=== PATIENT | male | born 1985 | race Caucasian/White ===

== ENCOUNTER 2016-10-21 10:09 | Emergency (ER) | payer MEDICAID, OTHER ==
[~2016-10-21] VITALS: Ht 170.2 cm; Wt 77.1 kg
[2016-10-21] MEDS ORDERED: IBUP80TA PO (10:25)
[2016-10-21] MEDS ORDERED: PROM50TA2 PO (10:25)
[2016-10-21] MEDS ORDERED: CLON-412 PO (10:25)
[2016-10-21] MEDS ORDERED: METH-107 PO (10:25)
[2016-10-21] MEDS ORDERED: ONDANSETRON 4MG/2ML VIAL (J2405) IV ONE (11:00)
[2016-10-21] MEDS ORDERED: NS 1,000 ML IV ONE (11:00)
[2016-10-21] MEDS ORDERED: cloNIDine 0.1 MG TAB PO ONE ×2 (11:15→13:30)
[2016-10-21 12:34] LABS: MEAN CORPUSCULAR VOLUME 85.7 fl (80.0-96.0); RED CELL DISTRIBUTION WIDTH 12.1 % (11.5-14.5)
[2016-10-21 12:47] LABS: METHADONE URINE NEGATIVE (NEGATIVE)
[2016-10-21 12:49] LABS: ALBUMIN 3.8 GM/DL (3.2-5.2); ALBUMIN/GLOBULIN RATIO 1.27 (1.00-1.93); ALKALINE PHOSPHATASE 50 U/L (45-117); ALT/SGPT 23 U/L (12-78); ANION GAP 9 MEQ/L (8-16); AST/SGOT 17 U/L (15-37); BILIRUBIN,DIRECT < 0.1 MG/DL (0.0-0.2); BILIRUBIN,TOTAL 0.6 MG/DL (0.2-1.0); BLOOD UREA NITROGEN 14 MG/DL (7-18); CALCIUM LEVEL 9.4 MG/DL (8.5-10.1); CARBON DIOXIDE LEVEL 24 MEQ/L (21-32); CHLORIDE LEVEL 110 MEQ/L (98-107); CREATININE FOR GFR 1.11 MG/DL (0.70-1.30); GLOMERULAR FILTRATION RATE > 60.0 (>60); GLUCOSE, FASTING 96 MG/DL (70-105); SODIUM LEVEL 143 MEQ/L (136-145); TOTAL PROTEIN 6.8 GM/DL (6.4-8.2)
[2016-10-21 14:05] VITALS: BP 150/87
--- NOTE | 2016-10-21 18:01 | ECGEPIP ---
Stationary ECG Study 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
== END 2016-10-21 14:08 | disposition home or self-care (01) ==
LOC: M ED 11:19
DX: F11.93 Opioid use, unspecified with withdrawal (principal); F12.10 Cannabis abuse, uncomplicated

== ENCOUNTER → 2016-10-23 | Outpatient (CLI) | payer OTHER ==
[~2016-10-23] MED LIST: CLON-412 PO; IBUP80TA PO; METH-107 PO; PROM50TA2 PO
== END ==
LOC: M OUTALCOH 08:00
PROVIDERS: ATTEND Psychiatry & Neurology Psychiatry
DX: Z13.9 Encounter for screening, unspecified (principal)

== ENCOUNTER 2019-11-10 12:14 | Day surgery (SDC) | payer OTHER ==
[~2019-11-10] VITALS: Ht 172.7 cm; Wt 79.0 kg
[~2019-11-10 12:14] MED LIST changes: +LIDOCAINE 1% MDV 20ML VIAL SQ PRN; +LR 1,000 ML IV ONE; -METH-107 PO; +METH1TAB40 PO; -PROM50TA2 PO; +PROM50TA4 PO; +[UNRECOGNIZED DRUG - CODE] PO; +ceFAZolin SOD 2 GM in IV 1 EA IV ONE
[2019-11-10] MEDS ORDERED: ROPIvacaine 0.5% 30ML INJECTION (J2795 PER 1MG) ONE (12:15)
[2019-11-10] MEDS ORDERED: dexameTHASONE 10MG/1ML VIAL PRES.FREE (J1100 PER 1MG) ONE (12:15)
[2019-11-10] MEDS ORDERED: EPINEPHrine INJ 1 MG/ML 1ML AMP ONE (12:15)
[2019-11-10] MEDS ORDERED: fentaNYL 250 MCG/5 ML INJECTION (J3010) As Ordered ONE (12:34)
[2019-11-10] MEDS ORDERED: ROCURONIUM BROMIDE 50 MG/5 ML VIAL As Ordered ONE (12:34)
[2019-11-10] MEDS ORDERED: MIDAZOLAM INJ 2MG/2ML VIAL (J2250 PER 1MG) As Ordered ONE ×2 (12:34→13:30)
[2019-11-10] MEDS ORDERED: ONDANSETRON 4MG/2ML VIAL (J2405 PER 1MG) As Ordered ONE (12:34)
[2019-11-10] MEDS ORDERED: dexameTHASONE 4 MG/ML 1ML VIAL (J1100 PER 1MG) As Ordered ONE (12:34)
[2019-11-10] MEDS ORDERED: propofoL 200 MG/20 ML VIAL As Ordered ONE (12:35)
[2019-11-10] MEDS ORDERED: LIDOCAINE 2% 100MG/5ML SDV (FOR ANES.) As Ordered ONE (12:35)
[2019-11-10] MEDS ORDERED: SUGAMMADEX SODIUM 500 MG/5 ML VIAL (BRIDION) As Ordered ONE (12:35)
[2019-11-10] MEDS ORDERED: BUPIVACAINE/EPIN 0.25% 30 ML VIAL As Ordered ONE (13:11)
[2019-11-10] MEDS ORDERED: fentaNYL 100 MCG/2 ML INJECTION (J3010) As Ordered ONE (13:30)
[2019-11-10] MEDS ORDERED: fentaNYL 100 MCG/2 ML INJECTION (J3010) IV ONE (14:00)
[2019-11-10] MEDS ORDERED: MIDAZOLAM INJ 2MG/2ML VIAL (J2250 PER 1MG) IV ONE (14:00)
[2019-11-10] MEDS ORDERED: ePHEDrine SULFATE 25 MG/5 ML(5MG/ML) SYRINGE As Ordered ONE (15:07)
[2019-11-10] MEDS ORDERED: LR 1,000 ML IV SCH ×2 (15:45→16:00)
[2019-11-10] MEDS ORDERED: fentaNYL 100 MCG/2 ML INJECTION (J3010) IV PRN (15:45)
[2019-11-10] MEDS ORDERED: oxyCODONE 5MG TAB PO PRN (15:45)
[2019-11-10] MEDS ORDERED: ONDANSETRON 4MG/2ML VIAL (J2405 PER 1MG) IV PRN (15:45)
--- NOTE | 2019-11-10 16:29 | RO ---
DATE OF PROCEDURE: 11/10/2019 PREOPERATIVE DIAGNOSIS: Left distal biceps tendon tear. POSTOPERATIVE DIAGNOSIS: Left distal biceps tendon tear. PLANNED PROCEDURE: Repair left distal biceps tendon. PROCEDURE PERFORMED: Repair left distal biceps tendon. SURGEON: Nik Lira MD BINDING END STITCHER: Reanna Ratliff AUTOMATIC PILOT MECHANIC: Dr. Infante OPERATIVE PREAMBLE: This pleasant 34-year-old man lifting an extremely heavy 200-pount object while gardening a few days ago. He dropped it, felt a pop. MRI history and clinical exam was consistent with a high-grade near full thickness distal biceps tendon tear. We talked about the pros, the cons, the risks and benefits of nonsurgical versus surgical repair. Wished to go ahead with surgery. I reiterated the risks in preoperative holding, marked the left upper extremity. The patient had a preoperative block and then proceeded to surgery. DESCRIPTION OF PROCEDURE: The patient was brought to the operating theater, administered general anesthetic. He was placed supine on the operating room table with the hand taped to the patient's left side. Two grams of IV Ancef was administered. Bed was turned 90 degrees. All bony prominences were appropriately padded. 18-inch tourniquet was applied to the left upper extremity, appropriately padded. Limb was prepped and draped in the usual sterile fashion allowing over 3 minutes prep solution drying time. Preoperative time-out was performed to confirm the site, the patient and surgery. A sterile Esmarch was used to exsanguinate the limb, limb elevated and tourniquet inflated to 250 mmHg. We began by making a 2-inch incision centered in the mid aspect of the volar forearm two fingerbreadths below the left elbow crease. We carried dissection down through skin and subcutaneous tissue, achieved meticulous hemostasis. Identified the distal biceps tendon. There was only a few fibers remaining attached distally to the radial tuberosity. Released these fibers. I prepared the tuberosity. I used the straight Guille needle with the loop stitch to perform sequential whipstitching along the tendon length, locked the distal suture and cut the suture in the mid aspect, and then passed the two tails in an opposite fashion through the Arthrex distal biceps button. I next turned my attention to the tuberosity. I fully supinated the arm. I passed the spade tip guide wire pen across both cortices at the level of the biceps insertion ensuring to fully supinate the arm away from the posterior interosseous nerve. I then sized the tendon; it was a size 9. I then attempted to overdrill the near cortex with a size 9 reamer. This was too dull, his bone too hard, so we used the size 8 reamer and this achieved a good reaming. Bone dust was irrigated and suctioned away. I then removed the spade tip guidewire, then passed the biceps button on the far cortex with the button and then pulled on both limbs in a sliding technique to reduce the distal biceps tendon and into the hole in the radial tuberosity. I had previously bulletized and prepared the tendon and prior to passing it. Then, I used a size 9 Arthrex interference screw over top of the stitch and fully seated this into the bone for interference fit. Then used a Guille needle to pass one suture limb back through the tendon in a locking configuration and tied alternating half-hitches and then cut the suture short. Tourniquet was let down, elbow kept in flexion throughout the repair and until the patient was placed into a brace. The wound was thoroughly irrigated. Tourniquet let down. Bleeding was quite meticulous and dry. Subcutaneous tissues closed with interrupted #3-0 Vicryl and the skin with a running #3-0 Monocryl. The skin was cleaned with a wet-to-dry dressing. I had used 5 mL of 0.25% Marcaine with 1:100,000 epinephrine at the start of the case. Steri-Strips were applied. Adaptic, 4 x 8 gauze and ABD dressing was then placed overlying the incision and overwrapped with sterile 4-inch Twin bandage. The patient's upper extremity was then placed into a hinged elbow brace locked at 90 degrees. The patient was woken up from general anesthetic, transferred off the operating table and taken to the postanesthetic care unit in stable condition. All sponge, needle, and instrument counts were correct. Estimated blood loss: 20 mL. PLAN: The patient is to be discharged home according to day surgery criteria. Followup in the office in 2 weeks' time.
[2019-11-10 17:05] VITALS: BP 144/90
== END 2019-11-10 17:08 | disposition home or self-care (01) ==
LOC: M SDC 12:14
PROVIDERS: ATTEND Orthopaedic Surgery Sports Medicine
DX: S46.212A Strain of muscle, fascia and tendon of other parts of biceps, left arm, initial encounter (principal); X50.0XXA Overexertion from strenuous movement or load, initial encounter; Y93.H2 Activity, gardening and landscaping; Y99.9 Unspecified external cause status; Y92.89 Other specified places as the place of occurrence of the external cause; F90.9 Attention-deficit hyperactivity disorder, unspecified type; Z79.899 Other long term (current) drug therapy; F17.220 Nicotine dependence, chewing tobacco, uncomplicated
CPT/HCPCS: 24341; 64415; C1713; J0171; J0690; J1100; J2250; J2405; J2795; J3010

== ENCOUNTER 2022-11-25 20:25 | Inpatient (IN) | payer OTHER ==
[~2022-11-25] VITALS: Ht 172.7 cm; Wt 81.8 kg
[~2022-11-25 20:25] MED LIST changes: -LIDOCAINE 1% MDV 20ML VIAL SQ PRN; -LR 1,000 ML IV ONE; +METH-1164 PO; -METH1TAB40 PO; -ceFAZolin SOD 2 GM in IV 1 EA IV ONE
[2022-11-25 21:21] LABS: HEMATOCRIT 42.4 % (42.0-52.0); HEMOGLOBIN 14.8 g/dl (13.5-17.5); MEAN CORPUSCULAR HEMOGLOBIN 31.3 pg (27.0-33.0); MEAN CORPUSCULAR HGB CONC 34.9 g/dl (32.0-36.5); MEAN CORPUSCULAR VOLUME 89.6 fl (80.0-96.0); PLATELET COUNT, AUTOMATED 210 10^3/uL (150-450); RED BLOOD COUNT 4.73 10^6/uL (4.30-6.10); WHITE BLOOD COUNT 7.9 10^3/uL (4.0-10.0)
[2022-11-25 21:40] LABS: PHENCYCLIDINE URINE NEGATIVE (NEGATIVE)
[2022-11-25 21:41] LABS: AMPHETAMINES LEVEL URINE NEGATIVE (NEGATIVE); BARBITURATES URINE NEGATIVE (NEGATIVE); BENZODIAZEPINES URINE NEGATIVE (NEGATIVE); COCAINE METABOLITE URINE NEGATIVE (NEGATIVE); METHADONE URINE NEGATIVE (NEGATIVE); OPIATES URINE NEGATIVE (NEGATIVE)
[2022-11-25 21:42] LABS: CANNABINOIDS URINE POSITIVE (NEGATIVE)
[2022-11-25 21:43] LABS: ETHYL ALCOHOL (ETHANOL) 0.138 % (0.000-0.010)
[2022-11-25 21:44] LABS: ACETAMINOPHEN LEVEL < 2.0 UG/ML (10.0-20.0)
[2022-11-25 21:45] LABS: ALKALINE PHOSPHATASE 70 U/L (46-116); ALT/SGPT 74 U/L (7.0-40); AST/SGOT 76 U/L (<34); BILIRUBIN,DIRECT 0.1 MG/DL (<0.4); BILIRUBIN,TOTAL 0.4 MG/DL (0.3-1.2); BLOOD UREA NITROGEN 20 MG/DL (9-23); CALCIUM LEVEL 9.1 MG/DL (8.5-10.1); CARBON DIOXIDE LEVEL 25 MMOL/L (20-31); CHLORIDE LEVEL 107 MMOL/L (98-107); CREATININE FOR GFR 0.99 MG/DL (0.70-1.30); GLOMERULAR FILTRATION RATE > 60.0 (>60); GLUCOSE, FASTING 96 MG/DL (60-100); POTASSIUM SERUM 3.8 MMOL/L (3.5-5.1); SALICYLATE LEVEL < 3.0 MG/DL (<30); SODIUM LEVEL 142 MMOL/L (136-145)
[2022-11-25 21:47] LABS: THYROID STIMULATING HORMONE 1.969 uIU/ML (0.55-4.78)
[2022-11-25] MEDS ORDERED: VALE500C2 PO (23:43)
[2022-11-25] MEDS ORDERED: TRAZ-186 PO (23:43)
[2022-11-25] MEDS ORDERED: LISI10TA22 PO (23:43)
[2022-11-25] MEDS ORDERED: APPLCAP PO (23:43)
[2022-11-25] MEDS ORDERED: MAGN400T2 PO (23:43)
[2022-11-25] MEDS ORDERED: OMEG10002 PO (23:43)
[2022-11-25] MEDS ORDERED: VITMTA PO (23:43)
[2022-11-25] MEDS ORDERED: HOME MED LIST COMPLETE! XX SCH (23:45)
[2022-11-25] MEDS ORDERED: ONDANSETRON 4MG ORAL DISINTEGRATING TAB PO ONE (23:50)
[2022-11-26] MEDS: MAGNESIUM OXIDE 400MG TAB (MAG-OX) PO SCH (09:00)
[2022-11-26] MEDS: OMEGA-3 1000MG CAPSULE PO SCH (09:00)
[2022-11-26] MEDS: MULTIVITAMINS/MINERALS THERAP 1 TAB PO SCH (09:00)
[2022-11-26] MEDS: THIAMINE 100 MG TAB PO SCH ×2 (09:00→20:22)
[2022-11-26] MEDS: FOLIC ACID 1MG TAB PO SCH (09:00)
[2022-11-26] MEDS: NICOTINE 21MG/24HR 1 EA TRANSDERMAL TD SCH (09:00)
[2022-11-26] MEDS ORDERED: LORazepam 2 MG TAB PO PRN (12:00)
[2022-11-26] MEDS ORDERED: ACETAMINOPHEN TAB 650MG DOSE (2X325MG) PO PRN (12:00)
[2022-11-26] MEDS ORDERED: diphenhydrAMINE 25MG CAP PO PRN (12:00)
[2022-11-26] MEDS ORDERED: traZODone 50 MG TAB PO PRN (12:00)
[2022-11-26] MEDS ORDERED: IBUPROFEN 400MG TAB PO PRN (12:00)
[2022-11-26] MEDS ORDERED: MAALOX 30 ML SUSP *UDC PO PRN (12:00)
[2022-11-26] MEDS ORDERED: MOM 30ML SUSPENSION UDC PO PRN (12:00)
[2022-11-26] MEDS ORDERED: OLANZapine ORAL DISINTEGRATING TAB 5MG PO PRN (12:00)
[2022-11-26 15:21] VITALS: BP 145/80
[2022-11-26] MEDS ORDERED: traZODone 50 MG TAB PO SCH (21:00)
[2022-11-26] MEDS ORDERED: cloNIDine 0.2 MG TAB PO SCH (21:00)
[2022-11-26 23:23] VITALS: BP 151/86
[2022-11-27 06:35] VITALS: BP 130/86
[2022-11-27 06:54] VITALS: BP 130/86
[2022-11-27] MEDS: MULTIVITAMINS/MINERALS THERAP 1 TAB PO SCH (08:43)
[2022-11-27] MEDS: MAGNESIUM OXIDE 400MG TAB (MAG-OX) PO SCH (08:43)
[2022-11-27] MEDS: FOLIC ACID 1MG TAB PO SCH (08:43)
[2022-11-27] MEDS: THIAMINE 100 MG TAB PO SCH (08:43)
[2022-11-27] MEDS: OMEGA-3 1000MG CAPSULE PO SCH (08:44)
[2022-11-27 08:48] VITALS: BP 142/78
[2022-11-27] MEDS: NICOTINE 21MG/24HR 1 EA TRANSDERMAL TD SCH (08:49)
[2022-11-27] MEDS ORDERED: INFLUENZA QUADRIVALENT PF VACCINE 0.5ML SYRINGE IM.IMMUN ONE (09:00)
[2022-11-27] MEDS ORDERED: MULTIVITAMINS/MINERALS THERAP 1 TAB PO SCH (09:00)
== END 2022-11-27 13:11 | disposition home or self-care (01) | DRG 775 ==
LOC: M ED 20:25 → M ED INP 11-26 11:57 → M PSY 11-26 14:58
PROVIDERS: ADMIT Student in an Organized Health Care Education/Training Program; ATTEND Psychiatry & Neurology Psychiatry
DX: F10.14 Alcohol abuse with alcohol-induced mood disorder (principal); F10.120 Alcohol abuse with intoxication, uncomplicated; F17.290 Nicotine dependence, other tobacco product, uncomplicated; I10 Essential (primary) hypertension; R74.01 Elevation of levels of liver transaminase levels; F12.10 Cannabis abuse, uncomplicated; Z59.00 Homelessness unspecified; Z56.0 Unemployment, unspecified; Z79.899 Other long term (current) drug therapy; Z20.822 Contact with and (suspected) exposure to COVID-19; Z83.3 Family history of diabetes mellitus; Z63.8 Other specified problems related to primary support group